=== PATIENT | male | born 1995 | race Caucasian/White ===

== ENCOUNTER 2018-10-26 18:00 | Emergency (ER) | payer OTHER ==
[~2018-10-26] VITALS: Ht 170.2 cm; Wt 90.7 kg
[2018-10-26 18:11] VITALS: Ht 170.2 cm; Wt 90.7 kg
[2018-10-26 18:31] VITALS: BP 133/71
== END 2018-10-26 18:31 | disposition other institution (70) ==
LOC: ED 18:00
DX: Z02.89 Encounter for other administrative examinations (principal)